=== PATIENT | male | born 1970 | race Caucasian/White ===

== ENCOUNTER 2018-02-03 19:13 | Inpatient (IN) | payer BC ==
[~2018-02-03] VITALS: Ht 175.3 cm; Wt 104.7 kg
[2018-02-04 06:25] VITALS: BP 136/86
[2018-02-04 21:10] LABS: CHLORIDE 101 MEQ/L (99-109); GFR ESTIMATE (CALCULATED) > 59 mL/min/ (58.99-99999); GLUCOSE 212 mg/dL (70-99); POTASSIUM 4.6 MEQ/L (3.7-5.4); SODIUM 139 MEQ/L (136-147); UREA NITROGEN (BUN) 23 mg/dL (9-23)
[2018-02-04 21:12] VITALS: BP 170/95
[2018-02-04 21:15] VITALS: BP 170/96
[2018-02-04 22:00] VITALS: BP 153/96
[2018-02-04 23:00] VITALS: BP 169/98
[2018-02-05] VITALS (24 sets, daily range): BP systolic 139–165; BP diastolic 89–107
[2018-02-05 06:53] LABS: HEMATOCRIT 49.2 % (38.0-50.0); HEMOGLOBIN 16.7 G/DL (12.5-16.6); MCH 31.2 PG (29.0-34.0); MCHC 33.9 G/DL (30.0-36.0); MCV 91.8 FL (86-99); PLATELET COUNT 293 K/uL (156-360); RBC DIS.WIDTH-CV 13.8 % (11.8-14.6); RBC DIS.WIDTH-SD 46.5 % (39-53); RED BLOOD COUNT 5.36 M/uL (4.00-5.50); WHITE BLOOD COUNT 24.7 K/uL (4.1-10.2)
[2018-02-06] VITALS (24 sets, daily range): BP systolic 127–164; BP diastolic 87–110
[2018-02-07] VITALS (21 sets, daily range): BP systolic 118–149; BP diastolic 73–89
[2018-02-07 05:39] LABS: HEMATOCRIT 46.3 % (38.0-50.0); HEMOGLOBIN 15.3 G/DL (12.5-16.6); MCH 30.2 PG (29.0-34.0); MCV 91.3 FL (86-99); PLATELET COUNT 243 K/uL (156-360); RBC DIS.WIDTH-CV 13.2 % (11.8-14.6); RBC DIS.WIDTH-SD 44.5 % (39-53); RED BLOOD COUNT 5.07 M/uL (4.00-5.50); WHITE BLOOD COUNT 20.2 K/uL (4.1-10.2)
[2018-02-07 06:06] LABS: CHLORIDE 98 MEQ/L (99-109); CREATININE 0.6 MG/DL (0.6-1.3); GFR ESTIMATE (CALCULATED) > 59 mL/min/ (58.99-99999); GLUCOSE 139 mg/dL (70-99); POTASSIUM 4.4 MEQ/L (3.7-5.4); SODIUM 135 MEQ/L (136-147); UREA NITROGEN (BUN) 23 mg/dL (9-23)
[2018-02-08] VITALS (20 sets, daily range): BP systolic 103–154; BP diastolic 63–87
[2018-02-09 03:00] VITALS: BP 137/74
[2018-02-09 11:46] VITALS: BP 118/69
[2018-02-09 19:50] VITALS: BP 137/79
[2018-02-09 23:26] VITALS: BP 126/80
[2018-02-10 04:18] VITALS: BP 127/75
[2018-02-10 06:56] VITALS: BP 132/74
[2018-02-10] MEDS ORDERED: HYDROCODON-ACE1 EAC7 PO (08:31)
[2018-02-10] MEDS ORDERED: NIMOTOP30 MG PO (14:07)
[2018-02-10] MEDS ORDERED: DECADRON1 MG PO (14:07)
[2018-02-10] MEDS ORDERED: BACTRIM,SEPT1 TABLET PO (14:08)
== END 2018-02-10 14:44 | disposition home or self-care (01) | DRG 25 ==
LOC: CANRESERV 19:13 → ENRESERV 19:13 → 2SOUTH 02-04 05:41 → 4WEST 02-04 05:41 → 2SOUTH 02-04 11:42 → ENRESERV 02-04 18:19 → 4WEST 02-04 21:02 → ENRESERV 02-08 17:25 → 4EAST 02-08 18:08
PROVIDERS: Neurological Surgery; Surgery
DX: D33.3 Benign neoplasm of cranial nerves (principal); H93.19 Tinnitus, unspecified ear; R29.810 Facial weakness; R25.3 Fasciculation; I10 Essential (primary) hypertension; N40.0 Benign prostatic hyperplasia without lower urinary tract symptoms; F41.9 Anxiety disorder, unspecified; Z86.73 Personal history of transient ischemic attack (TIA), and cerebral infarction without residual deficits; I45.6 Pre-excitation syndrome; Z87.891 Personal history of nicotine dependence; G93.5 Compression of brain; H91.92 Unspecified hearing loss, left ear; M10.9 Gout, unspecified; Z88.5 Allergy status to narcotic agent; Z88.0 Allergy status to penicillin; Z88.8 Allergy status to other drugs, medicaments and biological substances; H53.2 Diplopia; R26.9 Unspecified abnormalities of gait and mobility; H91.90 Unspecified hearing loss, unspecified ear; Q04.9 Congenital malformation of brain, unspecified; G62.9 Polyneuropathy, unspecified; G83.9 Paralytic syndrome, unspecified
CPT/HCPCS: 70450; 70552; 77021; 80048; 82948; 85027; 86850; 86870; 86900; 86901; 86905; 86920; 87641; 88305; 88307; 88331; 94799; 97530 GO; 97530 GP; C1713; C1729; J0131; J0330; J1100; J1170; J1200; J2405; J2765; J3010; J3480; Q0175; S0028

== ENCOUNTER → 2018-02-03 | Outpatient (CLI) | payer BC ==
[~2018-02-03] MED LIST: ADIPEX-P37.5 MG PO; ALL DAY ALLERGY10 M3 PO; ALLERGY MEDICAT25 M1 PO; DECADRON1 MG PO; DYAZIDE, MA1 CAPSULE PO; LEXAPRO10 MG PO; PEPCID20 MG PO; TOPROL XL50 MG PO; VENTOLIN HFA18 GM IH; ZYLOPRIM100 MG PO
== END | disposition home or self-care (01) ==
LOC: RAD 02-02 13:30 → MRI 13:41 → EDSTATUS 14:30 → RAD 14:30 → MRI 14:30
DX: D36.10 Benign neoplasm of peripheral nerves and autonomic nervous system, unspecified (principal)
CPT/HCPCS: 77021